=== PATIENT | male | born 1960 ===

== ENCOUNTER 2019-05-08 15:56 | Emergency (ER) | payer SELFPAY ==
[~2019-05-08] VITALS: Ht 165.1 cm; Wt 68.2 kg
[2019-05-08] MEDS ORDERED: HYDR25TA PO (16:22)
[2019-05-08] MEDS ORDERED: OXYC10 PO (16:22)
[2019-05-08] MEDS ORDERED: ACETAMINOPHEN 325 MG TABLET PO ONE (17:00)
[2019-05-08] MEDS ORDERED: LIDOCAINE 5% TRANSDERMAL PATCH TD ONE (17:00)
[2019-05-08] MEDS ORDERED: DIAZEPAM 5 MG TABLET PO ONE (17:45)
[2019-05-08 17:56] VITALS: BP 146/86
== END 2019-05-08 17:58 | disposition home or self-care (01) ==
LOC: EMS 15:59
DX: M54.2 Cervicalgia (principal); R53.1 Weakness; I10 Essential (primary) hypertension